=== PATIENT | female | born 1960 | race African-American/Black ===

== ENCOUNTER 2016-11-15 14:11 | Emergency (ER) | payer BC ==
[~2016-11-15] VITALS: Ht 165.1 cm; Wt 77.1 kg
[~2016-11-15 14:11] MED LIST: ANTIVERT25 MG PO; ASPIRIN325 PO; CALCIUM + D3 E1 EACH PO; CELEXA20 MG PO; CELEXA40 MG PO; CENTRUM SILVER1 EAC3 PO; CIPRO500 MG PO; COZAAR 25 MG TA25 M2 PO; CYMBALTA60 MG PO; EVAMIST8.1 ML TD; FEOSOL45 M1 PO; FEROSUL325 M1 PO; FISH OIL 1,0001 EAC5 PO; FLAGYL500 MG PO; GLUCOPHAGE500 MG PO; IBUPROFEN 800800 M1 PO; LEVOTHYROXINE 0.1 MG PO; LISINOPRIL5 MG PO; MAGNESIUM OXID200 MG PO; METHIMAZOLE; NEXIUM40 MG PO; PERCOCET 5-3251 EACH PO; PHENERGAN 25 MG25 M1 PO; PRAVASTATIN SOD10 MG PO; PRAVASTATIN SOD20 MG PO; PROTONIX40 M2 PO; RESTASIS1 EACH OPHTHALMIC; RESTORIL22.5 MG PO; ULTRAM 50MG TAB50 MG PO; VALIUM2 MG PO; VERAMYST10 GM; VERAMYST10 GM NS; VITAMIN D2000 UNIT PO; XANAX 0.25 MG0.25 MG PO; ZINC50 M2 PO; ZOFRAN4 MG PO; ZOVIRAX 5% OINT15 GM
[2016-11-15] MEDS ORDERED: VENTOLIN HFA 1818 GM INH (15:06)
[2016-11-15] MEDS ORDERED: PREDNISONE 20 M20 MG PO (15:06)
[2016-11-15] MEDS ORDERED: TESSALON PERLE100 MG PO (15:06)
== END 2016-11-15 16:37 | disposition home or self-care (01) ==
LOC: ER 14:11
DX: J40 Bronchitis, not specified as acute or chronic (principal); I10 Essential (primary) hypertension; E03.9 Hypothyroidism, unspecified; F41.9 Anxiety disorder, unspecified; E78.5 Hyperlipidemia, unspecified; Z90.710 Acquired absence of both cervix and uterus; Z98.890 Other specified postprocedural states; Z88.6 Allergy status to analgesic agent; Z88.1 Allergy status to other antibiotic agents; Z88.2 Allergy status to sulfonamides; Z88.8 Allergy status to other drugs, medicaments and biological substances; F10.99 Alcohol use, unspecified with unspecified alcohol-induced disorder

== ENCOUNTER 2017-05-23 17:52 | Emergency (ER) | payer BC ==
[~2017-05-23] VITALS: Ht 165.1 cm; Wt 79.4 kg
[~2017-05-23 17:52] MED LIST changes: +PREDNISONE 20 M20 MG PO; +TESSALON PERLE100 MG PO; +VENTOLIN HFA 1818 GM INH
[2017-05-23] MEDS ORDERED: FLONASE 0.05%50 MCG NASAL (18:47)
[2017-05-23] MEDS ORDERED: IBUPROFEN 600600 M1 PO (18:48)
== END 2017-05-23 18:48 | disposition home or self-care (01) ==
LOC: ER 17:52
DX: S63.92XA Sprain of unspecified part of left wrist and hand, initial encounter (principal); E11.9 Type 2 diabetes mellitus without complications; E78.00 Pure hypercholesterolemia, unspecified; Z90.710 Acquired absence of both cervix and uterus; F41.9 Anxiety disorder, unspecified; F10.99 Alcohol use, unspecified with unspecified alcohol-induced disorder; Z98.890 Other specified postprocedural states; Z88.5 Allergy status to narcotic agent; Z88.1 Allergy status to other antibiotic agents; Z88.2 Allergy status to sulfonamides; X58.XXXA Exposure to other specified factors, initial encounter; Y93.89 Activity, other specified; Y92.89 Other specified places as the place of occurrence of the external cause; Y99.0 Civilian activity done for income or pay

== ENCOUNTER 2018-01-12 12:13 | Emergency (ER) | payer BC ==
[~2018-01-12] VITALS: Ht 165.1 cm; Wt 80.7 kg
[~2018-01-12 12:13] MED LIST changes: +FLONASE 0.05%50 MCG NASAL; +IBUPROFEN 600600 M1 PO
[2018-01-12 13:12] LABS: URINE BILIRUBIN NEGATIVE (Negative); URINE BLOOD NEGATIVE (Negative); URINE CLARITY CLEAR; URINE COLOR YELLOW; URINE GLUCOSE-RANDOM* NEGATIVE (Negative); URINE KETONES NEGATIVE (Negative); URINE LEUKOCYTES NEGATIVE (Negative); URINE NITRITE NEGATIVE (Negative); URINE PROTEIN (DIPSTICK) NEGATIVE (Negative); URINE UROBILINOGEN 0.2 E.U./dl (0.2-1.0)
[2018-01-12 13:43] LABS: EOSINOPHILS 2.1 % (0.0-3.0); HEMATOCRIT 35.2 % (37.0-47.0); HEMOGLOBIN 11.4 gm/dL (12.0-15.0); MCH 24.8 pg (26.0-34.0); MCHC 32.5 g/dL (28.0-37.0); MCV 76.4 fL (80.0-100.0); MONOCYTES 7.2 % (1.0-8.0); PLATELET COUNT 243 thou/uL (150-400); POLYS 56.7 % (36.0-66.0); RDW 16.4 % (10.5-14.5); WBC 5.2 thou/uL (4.0-11.0)
[2018-01-12 13:50] LABS: CALCIUM 9.4 mg/dL (8.5-10.1); POTASSIUM 4.1 mmol/L (3.5-5.1)
[2018-01-12] MEDS ORDERED: NORFLEX100 MG PO (15:08)
[2018-01-12] MEDS ORDERED: NAPROSYN500 MG PO (15:08)
[2018-01-12 15:25] VITALS: BP 125/79
== END 2018-01-12 15:26 | disposition home or self-care (01) ==
LOC: ER 12:13
PROVIDERS: Nurse Practitioner Family
DX: S39.012A Strain of muscle, fascia and tendon of lower back, initial encounter (principal); I10 Essential (primary) hypertension; E03.9 Hypothyroidism, unspecified; E78.00 Pure hypercholesterolemia, unspecified; E11.9 Type 2 diabetes mellitus without complications; M79.7 Fibromyalgia; Z90.49 Acquired absence of other specified parts of digestive tract; Z88.5 Allergy status to narcotic agent; Z88.2 Allergy status to sulfonamides; Z88.1 Allergy status to other antibiotic agents; X58.XXXA Exposure to other specified factors, initial encounter; Y93.89 Activity, other specified; Y92.89 Other specified places as the place of occurrence of the external cause; Y99.8 Other external cause status

== ENCOUNTER 2018-10-16 21:05 | Emergency (ER) | payer BC ==
[~2018-10-16] VITALS: Ht 165.1 cm; Wt 84.4 kg
--- NOTE | ~2018-10-16 | EKG ---
[place] [address] [facility] [place] [address] ELECTROCARDIOGRAM REPORT Name: ADEN SANTOS Room #: [facility] Rc#: [id number] Admission: 10/16/18 Attend Phys: Discharge: 10/16/18 Date of : 56 Report #: [id number] THIS REPORT FOR: //name// [facility] ED Test Date: 2018-10-16 Test Time: 21:44:39 Pat Name: ADEN SANTOS Department: Room: Gender: F Inspector Tester Sorter: GRZEGORZ : 1960 Requested By: Blake Salcedo Order Number: [id number] MD: Max Zheng Measurements Intervals [place] Rate: 73 P: 23 TN: 114 QRS: 12 QRSD: 86 T: 32 QT: 388 QTc: 428 Interpretive Statements Sinus rhythm Nonspecific ST segment abnormality Compared to ECG 01/06/2016 21:26:57 No significant change was found Electronically Signed On 10-17-2018 7:52:57 STOREROOM CLERK by Max Zheng [email or web address] <ELECTRONICALLY SIGNED> By: Max Zheng MD, [facility] 10/17/18 0752 2144 2144 Max Zheng MD, FACC /EPI
[~2018-10-16 21:05] MED LIST changes: +NAPROSYN500 MG PO; +NORFLEX100 MG PO
[2018-10-16 21:40] LABS: URINE BILIRUBIN NEGATIVE (Negative); URINE BLOOD NEGATIVE (Negative); URINE CLARITY CLEAR; URINE COLOR YELLOW; URINE GLUCOSE-RANDOM* NEGATIVE (Negative); URINE KETONES NEGATIVE (Negative); URINE LEUKOCYTES-REFLEX NEGATIVE (Negative); URINE NITRITE-REFLEX NEGATIVE (Negative); URINE PROTEIN (DIPSTICK) NEGATIVE (Negative); URINE SPECIFIC GRAVITY <= 1.005 (1.005-1.035); URINE UROBILINOGEN 0.2 E.U./dl (0.2-1.0)
[2018-10-16 22:14] LABS: ABSOLUTE NEUTROPHILS 2.9 thou/uL (1.4-8.2); BASOPHILS 1.2 % (0.0-2.0); EOSINOPHILS 1.8 % (0.0-3.0); HEMATOCRIT 35.4 % (37.0-47.0); HEMOGLOBIN 11.7 gm/dL (12.0-15.0); LYMPHOCYTES 44.4 % (24.0-44.0); MCH 25.8 pg (26.0-34.0); MCHC 33.1 g/dL (28.0-37.0); MCV 77.9 fL (80.0-100.0); MONOCYTES 8.5 % (1.0-8.0); PLATELET COUNT 270 thou/uL (150-400); POLYS 44.1 % (36.0-66.0); RBC 4.54 mil/uL (4.20-5.00); RDW 16.3 % (10.5-14.5); WBC 6.7 thou/uL (4.0-11.0)
[2018-10-16 22:20] LABS: ANION GAP 6 mmol/L (7-16); BUN 10 mg/dL (7-18); CALCIUM 9.8 mg/dL (8.5-10.1); CHLORIDE 105 mmol/L (98-107); CO2 29 mmol/L (21-32); CREATININE 1.1 mg/dL (0.6-1.0); GLUCOSE 140 mg/dL (74-106); POTASSIUM 3.8 mmol/L (3.5-5.1); SODIUM 140 mmol/L (136-145)
[2018-10-16 22:27] LABS: ALBUMIN 3.8 g/dL (3.4-5.0); DIRECT BILIRUBIN 0.1 mg/dL (<0.1-0.3); TOTAL BILIRUBIN 0.3 mg/dL (<0.1-1.0); TOTAL PROTEIN 7.7 g/dL (6.4-8.2)
[2018-10-16 22:30] LABS: LIPASE 103 U/L (73-393); TROPONIN-I <0.06 ng/mL (<0.06)
[2018-10-16] MEDS ORDERED: PHENERGAN 25 MG25 M1 PO (22:58)
[2018-10-16 23:30] VITALS: BP 104/68
== END 2018-10-16 23:30 | disposition home or self-care (01) ==
LOC: ER 21:05
PROVIDERS: Emergency Medicine
DX: R42 Dizziness and giddiness (principal); R20.8 Other disturbances of skin sensation; R11.0 Nausea; I10 Essential (primary) hypertension; E11.9 Type 2 diabetes mellitus without complications; E78.00 Pure hypercholesterolemia, unspecified; G47.30 Sleep apnea, unspecified; M79.7 Fibromyalgia; F41.9 Anxiety disorder, unspecified; E05.90 Thyrotoxicosis, unspecified without thyrotoxic crisis or storm; Z88.5 Allergy status to narcotic agent; Z90.710 Acquired absence of both cervix and uterus; Z90.49 Acquired absence of other specified parts of digestive tract; Z88.1 Allergy status to other antibiotic agents; Z88.8 Allergy status to other drugs, medicaments and biological substances; Z88.2 Allergy status to sulfonamides

== ENCOUNTER 2019-03-03 02:05 | Emergency (ER) | payer BC ==
[~2019-03-03] VITALS: Ht 165.1 cm; Wt 53.1 kg
[2019-03-03] MEDS ORDERED: ZOFRAN ODT4 MG PO (03:39)
[2019-03-03] MEDS ORDERED: VALIUM5 MG PO (03:46)
[2019-03-03 03:52] VITALS: BP 119/83
== END 2019-03-03 03:53 | disposition home or self-care (01) ==
LOC: ER 02:05
DX: H81.399 Other peripheral vertigo, unspecified ear (principal); I10 Essential (primary) hypertension; E03.9 Hypothyroidism, unspecified; E11.9 Type 2 diabetes mellitus without complications; E78.00 Pure hypercholesterolemia, unspecified; G47.30 Sleep apnea, unspecified; M79.7 Fibromyalgia; E78.5 Hyperlipidemia, unspecified; F41.9 Anxiety disorder, unspecified; Z90.710 Acquired absence of both cervix and uterus; Z90.49 Acquired absence of other specified parts of digestive tract; Z88.5 Allergy status to narcotic agent; Z88.1 Allergy status to other antibiotic agents; Z88.2 Allergy status to sulfonamides

== ENCOUNTER 2019-04-10 16:36 | Emergency (ER) | payer BC ==
[~2019-04-10] VITALS: Ht 165.1 cm; Wt 78.0 kg
[~2019-04-10 16:36] MED LIST changes: +VALIUM5 MG PO; +ZOFRAN ODT4 MG PO
[2019-04-10 17:30] LABS: ABSOLUTE NEUTROPHILS 3.4 thou/uL (1.4-8.2); BASOPHILS 0.7 % (0.0-2.0); EOSINOPHILS 0.7 % (0.0-3.0); HEMATOCRIT 39.4 % (37.0-47.0); HEMOGLOBIN 12.9 gm/dL (12.0-15.0); LYMPHOCYTES 32.5 % (24.0-44.0); MCH 25.6 pg (26.0-34.0); MCHC 32.7 g/dL (28.0-37.0); MCV 78.3 fL (80.0-100.0); MONOCYTES 7.4 % (1.0-8.0); PLATELET COUNT 287 thou/uL (150-400); POLYS 58.7 % (36.0-66.0); RBC 5.03 mil/uL (4.20-5.00); RDW 15.7 % (10.5-14.5); WBC 5.8 thou/uL (4.0-11.0)
[2019-04-10 17:38] LABS: ANION GAP 9 mmol/L (7-16); BUN 8 mg/dL (7-18); CALCIUM 9.9 mg/dL (8.5-10.1); CHLORIDE 104 mmol/L (98-107); CO2 28 mmol/L (21-32); CREATININE 1.1 mg/dL (0.6-1.0); GLUCOSE 108 mg/dL (74-106); POTASSIUM 3.6 mmol/L (3.5-5.1); SODIUM 141 mmol/L (136-145)
[2019-04-10 17:48] LABS: MAGNESIUM 2.1 mg/dL (1.8-2.4); SGOT 17 U/L (15-37); SGPT 26 U/L (30-65); TOTAL BILIRUBIN 0.4 mg/dL (<0.1-1.0); TOTAL PROTEIN 8.6 g/dL (6.4-8.2); TROPONIN-I <0.06 ng/mL (<0.06)
[2019-04-10 18:32] VITALS: BP 134/83
--- NOTE | 2019-04-10 19:08 | EKG ---
[address] [address] [place] [address] ELECTROCARDIOGRAM REPORT Name: ADEN SANTOS Room #: [facility] Rc#: [id number] ������������������ Admission: 04/10/19 ������������������ Attend Phys: Discharge: 04/10/19 ������������������ Date of : 56 Report #: [id number] ����������������������������������������������������������������� [id number] THIS REPORT FOR: //name// [facility] ED Test Date: 2019-04-10 Test Time: 16:47:26 Pat Name: ADEN SANTOS Department: Room: Gender: F Solutions Delivery Consultant: MIKO : 1960 Requested By: Ryder Bermeo Order Number: [id number] MD: Jarrell Pena Measurements Intervals [place] Rate: 67 P: 6 AK: 117 QRS: 9 QRSD: 87 T: 36 QT: 394 QTc: 416 Interpretive Statements Sinus rhythm Borderline short AK interval Nonspecific ST-T wave changes Compared to ECG 10/16/2018 21:44:39 No significant changes Electronically Signed On 04-10-2019 19:08:38 CDT by Jarrell Pena [email or web address] ��������������������������������������������� <ELECTRONICALLY SIGNED> ���������������������������������������� By: Jarrell Pena MD ��������������������������������������������� 04/10/19 1908 D: 05/1646 46 Jarrell Pena MD /JOSEFINA
== END 2019-04-10 18:33 | disposition home or self-care (01) ==
LOC: ER 16:36
PROVIDERS: Emergency Medicine
DX: E03.9 Hypothyroidism, unspecified (principal); R00.2 Palpitations; I10 Essential (primary) hypertension; E05.90 Thyrotoxicosis, unspecified without thyrotoxic crisis or storm; E11.9 Type 2 diabetes mellitus without complications; E78.00 Pure hypercholesterolemia, unspecified; G47.30 Sleep apnea, unspecified; M79.7 Fibromyalgia; Z90.710 Acquired absence of both cervix and uterus; Z90.49 Acquired absence of other specified parts of digestive tract; Z88.5 Allergy status to narcotic agent; Z88.1 Allergy status to other antibiotic agents; Z88.8 Allergy status to other drugs, medicaments and biological substances; Z88.2 Allergy status to sulfonamides

== ENCOUNTER 2019-09-30 00:38 | Emergency (ER) | payer BC ==
[~2019-09-30] VITALS: Ht 157.5 cm; Wt 63.5 kg
[2019-09-30] MEDS ORDERED: LIVALO1 MG PO (00:52)
[2019-09-30] MEDS ORDERED: FLUOXETINE HCL40 MG PO (00:53)
[2019-09-30] MEDS ORDERED: PRAMIPEXOLE0.125 MG PO (00:54)
[2019-09-30 00:57] LABS: URINE BILIRUBIN 1+ (Negative); URINE BLOOD 3+ (Negative); URINE CLARITY TURBID; URINE COLOR RED; URINE GLUCOSE-RANDOM* NEGATIVE (Negative); URINE KETONES NEGATIVE (Negative); URINE PROTEIN (DIPSTICK) 2+ (Negative); URINE SPECIFIC GRAVITY 1.015 (1.005-1.035)
[2019-09-30 01:16] LABS: URINE LEUKOCYTES-REFLEX 2+ (Negative); URINE NITRITE-REFLEX POSITIVE (Negative)
[2019-09-30 01:20] LABS: BACTERIA-REFLEX 1-9 Few /HPF (None Seen); SQUAMOUS 0-3 Few /LPF (0-3); URINE RBC >20 Many /HPF (0-2); URINE WBC-REFLEX 6-15 Few /HPF (0-5)
[2019-09-30 01:21] LABS: CASTS None Seen /LPF (None Seen); CRYSTALS None Seen /LPF (None Seen); MUCUS 4-6 Moderate strn/LPF (None Seen)
[2019-09-30] MEDS ORDERED: PYRIDIUM200 MG PO (01:48)
[2019-09-30] MEDS ORDERED: AMOX TR-K CLV1 EAC3 PO (01:48)
[2019-09-30 02:20] VITALS: BP 107/76
== END 2019-09-30 02:21 | disposition home or self-care (01) ==
LOC: ER 00:38
PROVIDERS: Emergency Medicine Emergency Medical Services
DX: N39.0 Urinary tract infection, site not specified (principal); I10 Essential (primary) hypertension; E11.9 Type 2 diabetes mellitus without complications; E78.00 Pure hypercholesterolemia, unspecified; G47.30 Sleep apnea, unspecified; M79.7 Fibromyalgia; Z90.710 Acquired absence of both cervix and uterus; Z90.49 Acquired absence of other specified parts of digestive tract; Z88.5 Allergy status to narcotic agent; Z88.1 Allergy status to other antibiotic agents; Z88.2 Allergy status to sulfonamides

== ENCOUNTER 2020-01-02 13:01 | Emergency (ER) | payer BC ==
[~2020-01-02] VITALS: Ht 165.1 cm; Wt 75.8 kg
[~2020-01-02 13:01] MED LIST changes: +AMOX TR-K CLV1 EAC3 PO; +FLUOXETINE HCL40 MG PO; +LIVALO1 MG PO; +PRAMIPEXOLE0.125 MG PO; +PYRIDIUM200 MG PO
[2020-01-02 13:16] LABS: URINE BILIRUBIN NEGATIVE (Negative); URINE BLOOD 3+ (Negative); URINE CLARITY CLEAR; URINE COLOR YELLOW; URINE GLUCOSE-RANDOM* NEGATIVE (Negative); URINE KETONES NEGATIVE (Negative); URINE NITRITE-REFLEX NEGATIVE (Negative); URINE PROTEIN (DIPSTICK) NEGATIVE (Negative); URINE SPECIFIC GRAVITY <= 1.005 (1.005-1.035); URINE UROBILINOGEN 0.2 E.U./dl (0.2-1.0)
[2020-01-02 13:19] LABS: URINE LEUKOCYTES-REFLEX 3+ (Negative)
[2020-01-02 13:24] LABS: CRYSTALS None Seen /LPF (None Seen); SQUAMOUS 0-3 Few /LPF (0-3)
[2020-01-02 13:25] LABS: CASTS None Seen /LPF (None Seen); WBC CLUMPS Occasional (None Seen)
[2020-01-02] MEDS ORDERED: PHENAZOPYRIDIN200 M2 PO (13:41)
[2020-01-02] MEDS ORDERED: KEFLEX500 M1 PO (13:41)
[2020-01-02] MEDS ORDERED: ZOFRAN ODT4 MG DISSOLVE (13:52)
[2020-01-02 14:20] VITALS: BP 119/74
== END 2020-01-02 14:21 | disposition home or self-care (01) ==
LOC: ER 13:01
PROVIDERS: Physician Assistant
DX: N39.0 Urinary tract infection, site not specified (principal); I10 Essential (primary) hypertension; E11.9 Type 2 diabetes mellitus without complications; E78.00 Pure hypercholesterolemia, unspecified; M79.7 Fibromyalgia; G47.30 Sleep apnea, unspecified; F41.9 Anxiety disorder, unspecified; Z90.49 Acquired absence of other specified parts of digestive tract; Z90.710 Acquired absence of both cervix and uterus; Z88.1 Allergy status to other antibiotic agents; Z88.2 Allergy status to sulfonamides; Z88.6 Allergy status to analgesic agent

== ENCOUNTER 2020-04-22 15:16 | Emergency (ER) | payer BC, OTHER ==
[~2020-04-22] VITALS: Ht 165.1 cm; Wt 71.2 kg
[~2020-04-22 15:16] MED LIST changes: +KEFLEX500 M1 PO; +PHENAZOPYRIDIN200 M2 PO; +ZOFRAN ODT4 MG DISSOLVE
[2020-04-22 16:02] LABS: URINE BILIRUBIN NEGATIVE (Negative); URINE BLOOD TRACE (Negative); URINE CLARITY CLEAR; URINE COLOR YELLOW; URINE GLUCOSE-RANDOM* NEGATIVE (Negative); URINE KETONES NEGATIVE (Negative); URINE LEUKOCYTES-REFLEX NEGATIVE (Negative); URINE NITRITE-REFLEX NEGATIVE (Negative); URINE PROTEIN (DIPSTICK) NEGATIVE (Negative); URINE SPECIFIC GRAVITY <= 1.005 (1.005-1.035); URINE UROBILINOGEN 0.2 E.U./dl (0.2-1.0)
[2020-04-22] MEDS ORDERED: CIPRO500 M1 PO (16:10)
[2020-04-22] MEDS ORDERED: ONDANSETRON ODT8 MG PO (16:11)
[2020-04-22] MEDS ORDERED: SYNTHROID75 MCG PO (16:12)
[2020-04-22] MEDS ORDERED: DEXILANT60 MG PO (16:14)
[2020-04-22] MEDS ORDERED: LUNESTA2 MG PO (16:15)
[2020-04-22] MEDS ORDERED: RESTASIS1 EACH OPHTHALMIC (16:15)
[2020-04-22] MEDS ORDERED: PHENERGAN 25 MG25 M1 PO (16:16)
[2020-04-22 16:26] LABS: ABSOLUTE NEUTROPHILS 5.9 thou/uL (1.4-8.2); BASOPHILS 0.4 % (0.0-2.0); HEMATOCRIT 36.5 % (37.0-47.0); LYMPHOCYTES 22.8 % (24.0-44.0); MCH 25.8 pg (26.0-34.0); MCHC 32.8 g/dL (28.0-37.0); MCV 78.5 fL (80.0-100.0); MONOCYTES 6.8 % (1.0-8.0); PLATELET COUNT 254 thou/uL (150-400); RBC 4.65 mil/uL (4.20-5.00); RDW 16.2 % (10.5-14.5); WBC 8.5 thou/uL (4.0-11.0)
[2020-04-22 16:33] LABS: ANION GAP 9 mmol/L (7-16); BUN 7 mg/dL (7-18); CALCIUM 9.1 mg/dL (8.5-10.1); CHLORIDE 101 mmol/L (98-107); CO2 27 mmol/L (21-32); GLUCOSE 113 mg/dL (74-106); POTASSIUM 3.3 mmol/L (3.5-5.1); SODIUM 137 mmol/L (136-145)
[2020-04-22 16:43] LABS: ALBUMIN 3.3 g/dL (3.4-5.0); LIPASE 83 U/L (73-393); SGOT 25 U/L (15-37); SGPT 40 U/L (30-65); TOTAL BILIRUBIN 0.4 mg/dL (0.2-1.0); TOTAL PROTEIN 8.3 g/dL (6.4-8.2); TROPONIN-I <0.06 ng/mL (<0.06)
[2020-04-22 21:54] VITALS: BP 99/68
--- NOTE | 2020-04-23 10:11 | EKG ---
[facility] [place] [address] ELECTROCARDIOGRAM REPORT Name: ADEN SANTOS Room #: [facility]#: [id number] Admission: 04/22/20 Attend Phys: Discharge: 04/22/20 Date of : 56 Report #: [id number] THIS REPORT FOR: cc: FAM - No family physician/PCP FAM - No family physician/PCP Humza Wong MD ~ THIS REPORT FOR: //name// [facility] ED Test Date: 2020-04-22 Test Time: 15:58:19 Pat Name: ADEN SANTOS Department: Room: Gender: F Neuroscientist: [facility] : 1960 Requested By: Ryder Bermeo Order Number: [id number] MD: Humza Wong Measurements Intervals [place] Rate: 83 P: 31 MD: 120 QRS: 14 QRSD: 77 T: 44 QT: 401 QTc: 472 Interpretive Statements Sinus rhythm Borderline repol abnrm, anterolateral leads Compared to ECG 04/10/2019 16:47:26 ST (T wave) deviation no longer present Electronically Signed On 04-23-2020 10:10:05 CDT by Humza Wong [email or web address] <ELECTRONICALLY SIGNED> By: Humza Wong MD 04/23/20 1010 1558 1558 Humza Wong MD /[facility]
== END 2020-04-22 21:49 | disposition short-term general hospital (02) ==
LOC: ER 15:16
PROVIDERS: Emergency Medicine
DX: K57.30 Diverticulosis of large intestine without perforation or abscess without bleeding (principal); K21.9 Gastro-esophageal reflux disease without esophagitis; K59.00 Constipation, unspecified; I10 Essential (primary) hypertension; E05.90 Thyrotoxicosis, unspecified without thyrotoxic crisis or storm; E11.9 Type 2 diabetes mellitus without complications; E78.00 Pure hypercholesterolemia, unspecified; M79.7 Fibromyalgia; F41.9 Anxiety disorder, unspecified; Z90.49 Acquired absence of other specified parts of digestive tract; Z90.711 Acquired absence of uterus with remaining cervical stump; Z90.721 Acquired absence of ovaries, unilateral; Z79.2 Long term (current) use of antibiotics; Z79.899 Other long term (current) drug therapy; Z88.8 Allergy status to other drugs, medicaments and biological substances; Z88.5 Allergy status to narcotic agent; Z88.1 Allergy status to other antibiotic agents; Z88.6 Allergy status to analgesic agent; Z88.2 Allergy status to sulfonamides

== ENCOUNTER 2020-06-14 21:20 | Emergency (ER) | payer BC ==
[~2020-06-14] VITALS: Ht 165.1 cm; Wt 70.3 kg
[~2020-06-14 21:20] MED LIST changes: +CIPRO500 M1 PO; +DEXILANT60 MG PO; +LUNESTA2 MG PO; +ONDANSETRON ODT8 MG PO; +SYNTHROID75 MCG PO
[2020-06-14] MEDS ORDERED: PROTONIX40 M1 PO (21:31)
[2020-06-14 22:03] LABS: HEMATOCRIT 42.1 % (37.0-47.0); HEMOGLOBIN 13.9 gm/dL (12.0-15.0); MCH 26.4 pg (26.0-34.0); MCHC 32.9 g/dL (28.0-37.0); MCV 80.3 fL (80.0-100.0); PLATELET COUNT 245 thou/uL (150-400); RBC 5.25 mil/uL (4.20-5.00); RDW 16.7 % (10.5-14.5); WBC 9.7 thou/uL (4.0-11.0)
[2020-06-14 22:11] LABS: ANION GAP 12 mmol/L (7-16); BUN 11 mg/dL (7-18); CALCIUM 9.4 mg/dL (8.5-10.1); CHLORIDE 102 mmol/L (98-107); CO2 25 mmol/L (21-32); CREATININE 1.3 mg/dL (0.6-1.0); GLUCOSE 203 mg/dL (74-106); POTASSIUM 3.4 mmol/L (3.5-5.1); SODIUM 139 mmol/L (136-145)
[2020-06-14 22:21] LABS: ALBUMIN 4.3 g/dL (3.4-5.0); SGOT 15 U/L (15-37); SGPT 25 U/L (30-65); TOTAL BILIRUBIN 0.4 mg/dL (0.2-1.0); TOTAL PROTEIN 8.8 g/dL (6.4-8.2); TROPONIN-I <0.06 ng/mL (<0.06)
[2020-06-14 22:28] LABS: ABSOLUTE NEUTROPHILS 3.2 thou/uL (1.4-8.2); ANISOCYTOSIS 1+; POLYCHROMASIA OCCASIONAL
[2020-06-15 01:23] VITALS: BP 105/69
--- NOTE | 2020-06-15 08:33 | EKG ---
[facility] [place] [address] ELECTROCARDIOGRAM REPORT Name: ADEN SANTOS Room #: [facility]#: [id number] Admission: 06/14/20 Attend Phys: Discharge: 06/15/20 Date of : 56 Report #: [id number] THIS REPORT FOR: cc: Nino Aggarwal Van Thanh Thi DO Lundgren, Craig H. MD [facility] ~ THIS REPORT FOR: //name// [facility] ED Test Date: 2020-06-14 Test Time: 21:46:00 Pat Name: ADEN SANTOS Department: Room: Gender: F Hadoop Administrator: Teena : 1960 Requested By: Juan Ramon Fletcher Order Number: [id number] MD: Max Zheng Measurements Intervals [place] Rate: 112 P: 61 [place]: 121 QRS: 27 QRSD: 75 T: 245 QT: 296 QTc: 404 Interpretive Statements Sinus tachycardia Repol abnrm, severe global ischemia (LM/MVD) Compared to ECG 04/22/2020 15:58:19 ST segment abnormality is more pronounced Electronically Signed On 06-15-2020 8:33:37 CDT by Max Zheng [email or web address] <ELECTRONICALLY SIGNED> By: Max Zheng MD, [facility] 06/15/20 0833 2146 2146 Max Zheng MD, [facility] /EPI
== END 2020-06-15 02:15 | disposition home or self-care (01) ==
LOC: ER 21:20
PROVIDERS: Emergency Medicine
DX: R00.2 Palpitations (principal); I10 Essential (primary) hypertension; E11.9 Type 2 diabetes mellitus without complications; E78.00 Pure hypercholesterolemia, unspecified; M79.7 Fibromyalgia; Z88.1 Allergy status to other antibiotic agents; Z88.5 Allergy status to narcotic agent; Z88.2 Allergy status to sulfonamides; Z88.6 Allergy status to analgesic agent; Z79.899 Other long term (current) drug therapy; Z90.49 Acquired absence of other specified parts of digestive tract; Z90.710 Acquired absence of both cervix and uterus

== ENCOUNTER 2020-10-21 11:43 | Emergency (ER) | payer BC ==
[~2020-10-21] VITALS: Ht 165.1 cm; Wt 72.6 kg
[~2020-10-21 11:43] MED LIST changes: +PROTONIX40 M1 PO
[2020-10-21 14:06] LABS: ABSOLUTE NEUTROPHILS 2.3 thou/uL (1.4-8.2); BASOPHILS 0.6 % (0.0-2.0); EOSINOPHILS 1.1 % (0.0-3.0); HEMATOCRIT 40.8 % (37.0-47.0); HEMOGLOBIN 13.3 gm/dL (12.0-15.0); LYMPHOCYTES 45.2 % (24.0-44.0); MCH 26.7 pg (26.0-34.0); MCHC 32.6 g/dL (28.0-37.0); MONOCYTES 6.7 % (1.0-8.0); PLATELET COUNT 266 thou/uL (150-400); POLYS 46.4 % (36.0-66.0); RBC 4.97 mil/uL (4.20-5.00); RDW 14.9 % (10.5-14.5)
[2020-10-21 14:10] LABS: CALCIUM 10.3 mg/dL (8.5-10.1); CREATININE 0.9 mg/dL (0.6-1.0)
[2020-10-21 14:16] LABS: ALBUMIN 4.3 g/dL (3.4-5.0); TOTAL BILIRUBIN 0.3 mg/dL (0.2-1.0); TOTAL PROTEIN 8.8 g/dL (6.4-8.2)
[2020-10-21 15:24] VITALS: BP 120/85
--- NOTE | 2020-10-21 15:58 | EKG ---
[facility] [address] [place] [address] ELECTROCARDIOGRAM REPORT Name: ADEN SANTOS Room #: [facility]#: [id number] Admission: 10/21/20 Attend Phys: Discharge: 10/21/20 Date of : 56 Report #: [id number] <ELECTRONICALLY SIGNED> By: Dhiraj Madera MD, FACC 10/21/20 1558 1306 1306 Dhiraj Madera MD, FACC /EPI
== END 2020-10-21 15:24 | disposition home or self-care (01) ==
LOC: ER 11:43
PROVIDERS: Physician Assistant
DX: I10 Essential (primary) hypertension (principal); R42 Dizziness and giddiness; E11.9 Type 2 diabetes mellitus without complications; K21.9 Gastro-esophageal reflux disease without esophagitis; E78.00 Pure hypercholesterolemia, unspecified; E05.90 Thyrotoxicosis, unspecified without thyrotoxic crisis or storm; M79.7 Fibromyalgia; F41.9 Anxiety disorder, unspecified; Z90.710 Acquired absence of both cervix and uterus; Z90.49 Acquired absence of other specified parts of digestive tract; Z79.899 Other long term (current) drug therapy; Z88.8 Allergy status to other drugs, medicaments and biological substances; Z88.5 Allergy status to narcotic agent; Z88.2 Allergy status to sulfonamides; Z88.6 Allergy status to analgesic agent

== ENCOUNTER 2020-12-09 23:54 | Emergency (ER) | payer BC ==
[~2020-12-09] VITALS: Ht 165.1 cm; Wt 71.2 kg
[2020-12-10 00:33] LABS: ABSOLUTE NEUTROPHILS 3.3 thou/uL (1.4-8.2); BASOPHILS 1.5 % (0.0-2.0); EOSINOPHILS 1.2 % (0.0-3.0); HEMATOCRIT 38.1 % (37.0-47.0); HEMOGLOBIN 12.5 gm/dL (12.0-15.0); LYMPHOCYTES 47.9 % (24.0-44.0); MCH 26.6 pg (26.0-34.0); MCHC 32.8 g/dL (28.0-37.0); MONOCYTES 6.4 % (1.0-8.0); PLATELET COUNT 254 thou/uL (150-400); RBC 4.71 mil/uL (4.20-5.00); RDW 14.2 % (10.5-14.5); WBC 7.7 thou/uL (4.0-11.0)
[2020-12-10 00:43] LABS: ANION GAP 11 mmol/L (7-16); BUN 8 mg/dL (7-18); CALCIUM 9.3 mg/dL (8.5-10.1); CHLORIDE 103 mmol/L (98-107); CO2 27 mmol/L (21-32); CREATININE 1.1 mg/dL (0.6-1.0); GLUCOSE 182 mg/dL (74-106); POTASSIUM 3.5 mmol/L (3.5-5.1); SODIUM 141 mmol/L (136-145)
[2020-12-10 00:52] LABS: ALBUMIN 4.1 g/dL (3.4-5.0); SGOT 14 U/L (15-37); SGPT 26 U/L (14-59); TOTAL BILIRUBIN 0.2 mg/dL (0.2-1.0); TOTAL PROTEIN 8.1 g/dL (6.4-8.2); TROPONIN-I <0.06 ng/mL (<0.06)
[2020-12-10] MEDS ORDERED: FISH OIL 1,0001 EAC8 PO (01:06)
[2020-12-10 01:53] VITALS: BP 107/74
--- NOTE | 2020-12-12 07:38 | EKG ---
[facility] [place] [address] ELECTROCARDIOGRAM REPORT Name: ADEN SANTOS Room #: [facility]P Rc#: [id number] Admission: 12/09/20 Attend Phys: Discharge: 12/10/20 Date of : 56 Report #: [id number] [facility] ED Test Date: 2020-12-10 Test Time: 00:37:55 Pat Name: ADEN SANTOS Department: Room: Gender: F Rn X Ray: kerry : 1960 Requested By: Waldemar Urena Order Number: [id number] MD: Max Zheng Measurements Intervals [place] Rate: 119 P: 57 MA: 162 QRS: 14 QRSD: 72 T: -86 QT: 292 QTc: 411 Interpretive Statements Sinus tachycardia Low voltage, extremity leads Nonspecific repol abnormality, diffuse leads Compared to ECG 10/21/2020 13:06:07 No significant change was found Electronically Signed On 12-12-2020 7:38:37 CREATIVE ARTS MUSIC THERAPIST by Max Zheng [email or web address] <ELECTRONICALLY SIGNED> By: Max Zheng MD, [facility] 12/12/20 0738 0037 0037 Max Zheng MD, FACC /EPI
== END 2020-12-10 01:54 | disposition home or self-care (01) ==
LOC: ER 23:54
PROVIDERS: Emergency Medicine
DX: R00.2 Palpitations (principal); F41.9 Anxiety disorder, unspecified; I10 Essential (primary) hypertension; E11.9 Type 2 diabetes mellitus without complications; E78.5 Hyperlipidemia, unspecified; Z90.49 Acquired absence of other specified parts of digestive tract; Z90.710 Acquired absence of both cervix and uterus; Z79.899 Other long term (current) drug therapy; Z88.1 Allergy status to other antibiotic agents; Z88.2 Allergy status to sulfonamides; Z88.5 Allergy status to narcotic agent; Z88.8 Allergy status to other drugs, medicaments and biological substances

== ENCOUNTER 2021-09-12 03:23 | Emergency (ER) | payer OTHER ==
[~2021-09-12] VITALS: Ht 165.1 cm; Wt 74.8 kg
[~2021-09-12 03:23] MED LIST changes: +FISH OIL 1,0001 EAC8 PO
[2021-09-12 04:41] LABS: ABSOLUTE NEUTROPHILS 3.1 thou/uL (1.4-8.2); BASOPHILS 0.6 % (0.0-2.0); EOSINOPHILS 1.4 % (0.0-3.0); HEMATOCRIT 38.8 % (37.0-47.0); HEMOGLOBIN 12.2 gm/dL (12.0-15.0); LYMPHOCYTES 44.7 % (24.0-44.0); MCH 25.9 pg (26.0-34.0); MCHC 31.4 g/dL (28.0-37.0); MCV 82.4 fL (80.0-100.0); MONOCYTES 8.2 % (1.0-8.0); PLATELET COUNT 205 thou/uL (150-400); POLYS 45.1 % (36.0-66.0); RBC 4.71 mil/uL (4.20-5.00); RDW 15.1 % (10.5-14.5); WBC 6.8 thou/uL (4.0-11.0)
[2021-09-12 05:01] LABS: POTASSIUM 3.9 mmol/L (3.5-5.1)
[2021-09-12 05:07] LABS: ALBUMIN 3.8 g/dL (3.4-5.0); TOTAL BILIRUBIN 0.3 mg/dL (0.2-1.0); TOTAL PROTEIN 7.8 g/dL (6.4-8.2)
[2021-09-12] MEDS ORDERED: NAPROXEN SODIU220 M2 PO (06:03)
[2021-09-12] MEDS ORDERED: PRILOSEC10 MG PO (06:09)
[2021-09-12 06:25] VITALS: BP 106/65
== END 2021-09-12 06:23 | disposition home or self-care (01) ==
LOC: ER 03:23
PROVIDERS: Emergency Medicine
DX: R10.11 Right upper quadrant pain (principal); I10 Essential (primary) hypertension; E03.9 Hypothyroidism, unspecified; E11.9 Type 2 diabetes mellitus without complications; E78.00 Pure hypercholesterolemia, unspecified; M79.7 Fibromyalgia; F41.9 Anxiety disorder, unspecified; Z98.890 Other specified postprocedural states; Z90.710 Acquired absence of both cervix and uterus; Z90.49 Acquired absence of other specified parts of digestive tract; Z79.84 Long term (current) use of oral hypoglycemic drugs; Z79.891 Long term (current) use of opiate analgesic; Z79.1 Long term (current) use of non-steroidal anti-inflammatories (NSAID); Z79.899 Other long term (current) drug therapy; Z88.6 Allergy status to analgesic agent; Z88.1 Allergy status to other antibiotic agents; Z88.5 Allergy status to narcotic agent; Z88.2 Allergy status to sulfonamides; Z88.8 Allergy status to other drugs, medicaments and biological substances; Z91.09 Other allergy status, other than to drugs and biological substances